=== PATIENT | female | born 2000 | race Asian ===

== ENCOUNTER 2022-08-06 12:52 | Outpatient (CLI) | payer OTHER | END 2022-08-06 18:57 | disposition home or self-care (01) | LOC: MRI 12:52 | PROVIDERS: ATTEND Orthopaedic Surgery | DX: M76.32 Iliotibial band syndrome, left leg (principal); S33.8XXD Sprain of other parts of lumbar spine and pelvis, subsequent encounter; Y92.89 Other specified places as the place of occurrence of the external cause ==